=== PATIENT | male | born 1960 | race Asian ===

== ENCOUNTER 2017-04-21 08:56 | Emergency (ER) | payer OTHER ==
[~2017-04-21] VITALS: Ht 157.5 cm; Wt 53.5 kg
[2017-04-21 12:52] VITALS: BP 130/82
== END 2017-04-21 12:52 | disposition home or self-care (01) ==
LOC: ED 08:56
DX: S61.213A Laceration without foreign body of left middle finger without damage to nail, initial encounter (principal); S61.211A Laceration without foreign body of left index finger without damage to nail, initial encounter; S61.215A Laceration without foreign body of left ring finger without damage to nail, initial encounter; W31.89XA Contact with other specified machinery, initial encounter; Y93.89 Activity, other specified; Y92.89 Other specified places as the place of occurrence of the external cause; Y99.8 Other external cause status
CPT/HCPCS: 90715; J0690; J2001; Q0092